=== PATIENT | male | born 1960 | race Caucasian/White ===

== ENCOUNTER 2017-03-08 14:30 | Emergency (ER) | payer BC | END 2017-03-08 14:31 | disposition left against medical advice (07) | LOC: CED 14:30 | DX: Z53.21 Procedure and treatment not carried out due to patient leaving prior to being seen by health care provider (principal) ==

== ENCOUNTER 2017-05-06 15:31 | Emergency (ER) | payer BC ==
[2017-05-06 15:57] VITALS: O2SAT 95
--- NOTE | 2017-05-06 16:30 | EDPHY ---
H & P Stated Complaint: llq abd pain with hx diverticulitis Time Seen by Provider: 05/06/17 16:29 - Personal History Current Tetanus/Diphtheria Vaccine: Yes - Medical/Surgical History Hx Asthma: No Hx Chronic Respiratory Disease: No Hx Diabetes: No Hx Cardiac Disease: Yes Hx Renal Disease: No Hx Cirrhosis: No Hx Alcoholism: No Hx HIV/AIDS: No Hx Splenectomy or Spleen Trauma: No Other PMH: diverticulitis. htn, high cholesterol, high triglycerides. thyroid ca, compartment syndrome related to running (fasciotomy to both shins). cholecystecomy, appy. mast cell activation. being worked up for poss pheo - Social History Smoking Status: Never smoked Constitutional: Initial Vital Signs Temperature (C) 36.8 C 05/06/17 15:54 Heart Rate 91 05/06/17 15:54 Respiratory Rate 18 05/06/17 15:54 Blood Pressure 145/100 H 05/06/17 15:54 O2 Sat (%) 95 05/06/17 15:54 O2 Delivery Mode Room Air Allergies/Adverse Reactions: codeine Allergy (Verified 05/06/17 15:53) GI BLEED loratadine [From Claritin] Allergy (Verified 05/06/17 15:53) PERIPHERAL NEUROPATHY moxifloxacin Allergy (Verified 05/06/17 15:53) Peripheral Neuropathy/ Tachycardia Home Medications: Medication Instructions Recorded Cetirizine [ZyrTEC 10 mg (*)] 10 mg PO DAILY PRN 11/15/13 Diltiazem Xr [Dilacor Xr] 240 mg PO DAILY 11/15/13 Lisinopril [Zestril 20 mg (*)] 20 mg PO DAILY@1700 11/15/13 Simvastatin [Zocor 20 mg] 20 mg PO DAILY@17 11/15/13 Multivitamins [Multivitamin (*)] 1 each PO DAILY 11/16/13 Levothyroxine [Synthroid 150 mcg 150 mcg PO DAILY06 11/10/14 (*)] Silodosin [RAPAFLO] 4 mg PO DAILY@17 11/10/14 Aspirin EC [Aspirin EC 81 mg (*)] 81 mg PO DAILY 12/19/15 Ketotifen Fumarate [Zaditor] 1 drop EACHEYE BID 12/19/15 Acetaminophen [Tylenol 325mg (*)] 650 mg PO QID PRN #0 tab 12/21/15 Tears/Dextran 70/Hypromellose 1 drop EACHEYE PRN PRN #0 opht.btl 12/21/15 [Natural Balance Tears (*)] Medical Decision Making - Diagnostics Imaging Results: Imaging Impressions Abdomen CT 05/06/17 17:12 Impression: 1. No acute findings in the abdomen or pelvis 2. Nonobstructing right nephrolithiasis. 3. Diverticulosis without evidence of diverticulitis. 4. Fatty infiltration of the liver. 5. Additional findings as above. Findings discussed with Dr. Salo Hess on May 06, 2017 at 1842 hours. Imaging: Discussed imaging studies w/ optometric coordinator Radiologist ED Course/Re-evaluation: CHIEF COMPLAINT: Left lower quadrant abdominal pain HISTORY OF PRESENT ILLNESS: This patient is a 56 y/o male with history of MCAS complaining of lower left quadrant abdominal pain onset this morning. Two years ago he was diagnosed with , diverticulitis and had similar symptoms at that time. He was initially treated with Augmentin which did not resolve symptoms, then with moxifloxacin, to which he had an allergic reaction. IV Invanz successfully resolved his symptoms. He also has history of epiploic appendagitis, which presented with similar symptoms as well. His current pain had no relief with ibuprofen. He has associated nausea. He thought his pain could be related to constipation, and endorses some diarrhea after taking a stool softener. He endorses chills. He denies fever, chest pain, shortness of breath, urinary complaints, or other associated symptoms. REVIEW OF SYSTEMS: A 10 point review of systems was performed and is negative with the exception of the elements mentioned in the history of present illness. PHYSICAL EXAM: HR, BP, O2 Sat, RR. Temp noted General Appearance: Alert, well hydrated, appropriate, and non-toxic appearing. Head: Atraumatic without scalp tenderness or obvious injury Eyes: Pupils equal, round, reactive to light and accommodation, EOMI, no trauma , no injection. Ears: Clear bilaterally, no perforation, normal landmarks Nose: Atraumatic, no rhinorrhea, clear. Throat: There is no erythema or exudates, no lesions, normal tonsils, mucus membranes moist. Neck: Supple, 2+ carotid upstroke, nontender, no lymphadenopathy. Respiratory: No retractions, no distress, no wheezes, and no accessory muscle use. Lungs are clear to auscultation bilaterally. Cardiovascular: Regular rate and rhythm, no murmurs, rubs, or gallops. Bilateral carotid, radial, dorsalis pedis, and posterior tibial pulses intact. Good capillary refill all extremities. Gastrointestinal: Left lower quadrant tenderness. Abdomen is soft, non- distended, no masses, no rebound, no guarding, no peritoneal signs. Musculoskeletal: Normal active ROM of all extremities, atraumatic. Neurological: Alert, appropriate, and interactive. The patient has normal DTRs and non-focal cranial nerves, motor, sensory, and cerebellar exam. Skin: No rashes, good turgor, no nodules on palpation. Past medical history: Mast cell activation syndrome (takes Dinora, Zyrtec, Benadryl). Diverticulitis. Possible reaction to IV gadolinium. Hypertension, Hyperlipidemia, High triglycerides, Thyroid cancer, Past surgical history: Cholecystectomy, Appendectomy Family history: Noncontributory Social history: Employed, does not abuse tobacco drugs or alcohol DIAGNOSTICS/PROCEDURES/CRITICAL CARE TIME: Study: CT of the abdomen and pelvis with IV contrast Indication: left lower abdominal pain Results: CT scan of the abdomen and pelvis was obtained. The results of the study are no acute findings of diverticulitis or epiploic appendagitis or anything else. The study was read by the radiologist, Dr. Corby Tavera. I viewed the images myself on the PACS system. DIFFERENTIAL DIAGNOSIS: The differential diagnosis for the patient's abdominal pain included but was not limited to appendicitis, cholecystitis, hernias, testicular torsion, gastritis, and urinary tract infection. MEDICAL DECISION MAKIN56 y/o male presents with left sided abdominal pain onset this morning. Exam reveals left lower quadrant tenderness. Plan for CT abdomen with contrast to assess for acute findings including diverticulitis or epiploic appendagitis. Plan for labs including CBC, BMP, liver, and lipase. Plan to administer 50mg IV Benadryl given the patient's history of MCAS. 17:[address] Covarrubias, infectious disease specialist regarding possible followup for IV Invanz if the patient does have diverticulitis. Laboratory studies unremarkable. No elevated white blood cell count. 18:[address] Tavera, radiologist. CT negative for acute intraabdominal processes. See detailed report above. Fortunately, this patient does not have any acute findings. We will have him follow up with his regular doctor as this certainly could be a very early sigmoid diverticulitis that is just not showing up yet. Laboratory studies are unrevealing for any specific diagnosis. This patient will return if he gets worse. He is comfortable with this plan. - Data Points Laboratory Results: Laboratory Results 05/06/17 16:45 05/06/17 16:45 05/06/17 05/06/17 16:45 16:45 WBC 4.65 10^3/uL 10^3/uL (3.80-9.50) RBC 5.27 10^6/uL 10^6/uL (4.40-6.38) Hgb 16.7 g/dL g/dL (13.7-17.5) Hct 44.9 % % (40.0-51.0) MCV 85.2 fL fL (81.5-99.8) MCH 31.7 pg pg (27.9-34.1) MCHC 37.2 g/dL H g/dL (32.4-36.7) RDW 12.8 % % (11.5-15.2) Plt Count 155 10^3/uL 10^3/uL (150-400) MPV 10.5 fL fL (8.7-11.7) Neut % (Auto) 66.7 % % (39.3-74.2) Lymph % (Auto) 19.4 % % (15.0-45.0) [place] % (Auto) 11.0 % % (4.5-13.0) Eos % (Auto) 1.7 % % (0.6-7.6) Baso % (Auto) 0.6 % % (0.3-1.7) Nucleat RBC Rel Count 0.0 % % (0.0-0.2) Absolute Neuts (auto) 3.10 10^3/uL 10^3/uL (1.70-6.50) Absolute Lymphs (auto) 0.90 10^3/uL L 10^3/uL (1.00-3.00) Absolute Monos (auto) 0.51 10^3/uL 10^3/uL (0.30-0.80) Absolute Eos (auto) 0.08 10^3/uL 10^3/uL (0.03-0.40) Absolute Basos (auto) 0.03 10^3/uL 10^3/uL (0.02-0.10) Absolute Nucleated RBC 0.00 10^3/uL 10^3/uL (0-0.01) Immature Gran % 0.6 % % (0.0-1.1) Immature Gran # 0.03 10^3/uL 10^3/uL (0.00-0.10) RBC/WBC/PLT Morphology NORMAL (NORMAL) Platelet Estimate ADEQUATE (ADEQ) Sodium 140 mEq/L mEq/L (134-144) Potassium 4.2 mEq/L mEq/L (3.5-5.2) Chloride 105 mEq/L mEq/L (97-110) Carbon Dioxide 21 mEq/l L mEq/l (22-31) Anion Gap 14 mEq/L mEq/L (8-16) BUN 14 mg/dL mg/dL (7-23) Creatinine 1.2 mg/dL mg/dL (0.7-1.3) Estimated GFR > 60 Glucose 98 mg/dL mg/dL (70-100) Calcium 10.1 mg/dL mg/dL (8.5-10.4) Total Bilirubin 1.2 mg/dL mg/dL (0.1-1.4) Conjugated Bilirubin 0.4 mg/dL mg/dL (0.0-0.5) Unconjugated Bilirubin 0.8 mg/dL mg/dL (0.0-1.1) AST 59 IU/L IU/L (17-59) ALT 110 IU/L H IU/L (21-72) Alkaline Phosphatase 95 IU/L IU/L (38-126) Total Protein 7.6 g/dL g/dL (6.3-8.2) Albumin 4.9 g/dL g/dL (3.5-5.0) Lipase 130 IU/L IU/L (23-300) Medications Given: Discontinued Medications Diphenhydramine HCl (Benadryl Injection) 50 mg IVP EDNOW ONE Stop: 05/06/17 17:15 Last Admin: 05/06/17 17:28 Dose: 50 mg Sodium Chloride (Ns) 1,000 mls @ 0 mls/hr IV EDNOW ONE; Wide Open PRN Reason: Protocol Stop: 05/06/17 17:12 Last Admin: 05/06/17 17:28 Dose: 1,000 mls Departure - Departure Disposition: Home, Routine, Self-Care Clinical Impression: Abdominal pain Qualifiers: Abdominal location: left lower quadrant Qualified Code(s): R10.32 - Left lower quadrant pain Condition: Good Instructions: Acute Abdominal Pain (ED) Additional Instructions: Follow up with your primary care physician for continued evaluation of symptoms. Take 600mg Ibuprofen every 6-8 hours as needed for pain. Return if your pain worsens or if your pain is not resolved in the next 12-18 hours, or if you develop fever, vomiting, diarrhea, or other worsening of condition. Attached is information on contacting Dr. Lois Hinkle if you are interested in following up with her regarding MCAS. Referrals: Candida Loredo MD [Primary Care Provider] - As per Instructions Lois Hinkle MD [[facility] [place]] - As per Instructions Report Scribed for: Salo Hess Report Scribed by: Vicky Diego Date of Report: 05/06/17 Time of Report: 19:02
[2017-05-06] MEDS ORDERED: NS 1,000 ML IV ONE (17:11)
[2017-05-06 17:25] LABS: ALANINE AMINOTRANSFERASE 110 IU/L (21-72); ALBUMIN 4.9 g/dL (3.5-5.0); ALKALINE PHOSPHATASE 95 IU/L (38-126); ANION GAP 14 mEq/L (8-16); ASPARTATE AMINOTRANSFERASE 59 IU/L (17-59); BILIRUBIN,TOTAL 1.2 mg/dL (0.1-1.4); BILIRUBIN-CONJUGATED 0.4 mg/dL (0.0-0.5); BILIRUBIN-UNCONJUGATED 0.8 mg/dL (0.0-1.1); CALCIUM 10.1 mg/dL (8.5-10.4); CARBON DIOXIDE 21 mEq/l (22-31); CHLORIDE 105 mEq/L (97-110); CREATININE 1.2 mg/dL (0.7-1.3); GLOMERULAR FILTRATION RATE > 60; GLUCOSE 98 mg/dL (70-100); POTASSIUM 4.2 mEq/L (3.5-5.2); SODIUM 140 mEq/L (134-144); TOTAL PROTEIN 7.6 g/dL (6.3-8.2)
[2017-05-06 17:39] LABS: % IMMATURE GRANULYOCYTES 0.6 % (0.0-1.1); ABSOLUTE IMMATURE GRANULOCYTES 0.03 10^3/uL (0.00-0.10); ADD DIFF? NO; HEMATOCRIT 44.9 % (40.0-51.0); HEMOGLOBIN 16.7 g/dL (13.7-17.5); MEAN CELL HEMOGLOBIN 31.7 pg (27.9-34.1); MEAN CELL HEMOGLOBIN CONCENTR. 37.2 g/dL (32.4-36.7); MEAN CELL VOLUME 85.2 fL (81.5-99.8); MEAN PLATELET VOLUME 10.5 fL (8.7-11.7); PLATELET COUNT 155 10^3/uL (150-400); RED BLOOD CELL COUNT 5.27 10^6/uL (4.40-6.38); RED CELL DISTRIBUTION WIDTH 12.8 % (11.5-15.2)
[2017-05-06] MEDS ORDERED: IOPAMIDOL (ISOVUE-300) 100 ML BTL ONE (17:40)
[2017-05-06 17:43] LABS: ADD SCAN? NO
[2017-05-06 17:45] LABS: ADD MORPH? YES
[2017-05-06 18:13] LABS: PLATELET ESTIMATE ADEQUATE (ADEQ)
[2017-05-06 19:46] VITALS: BP 136/86; PULSE 74; RESP 16; TEMP 97.5
== END 2017-05-06 19:46 | disposition home or self-care (01) ==
DX: R10.32 Left lower quadrant pain (principal); I10 Essential (primary) hypertension; E86.9 Volume depletion, unspecified; Z79.82 Long term (current) use of aspirin; Z85.850 Personal history of malignant neoplasm of thyroid; Z90.49 Acquired absence of other specified parts of digestive tract
CPT/HCPCS: 96374; J1200; Q9967

== ENCOUNTER → 2017-11-19 | Outpatient (CLI) | payer BC | LOC: FIMAGING 15:52 | PROVIDERS: ATTEND Physical Medicine & Rehabilitation | DX: M54.2 Cervicalgia (principal); M50.30 Other cervical disc degeneration, unspecified cervical region; M50.21 Other cervical disc displacement, high cervical region ==

== ENCOUNTER 2018-01-04 10:04 | Emergency (ER) | payer BC ==
--- NOTE | 2018-01-04 10:32 | EDPHY ---
H & P Stated Complaint: R flank pain x 1 day, R testicle pain continues saw uro epidm Time Seen by Provider: 01/04/18 10:15 HPI/ROS: CHIEF COMPLAINT: Right flank pain, right testicle pain HISTORY OF PRESENT ILLNESS: 57-year-old male via private vehicle complaining of right testicle pain which has been occurring for few days. He saw urology 4 days ago DAMARI Holly, diagnosed epididymitis given injection of cephalosporin, prescription for Cipro. He notes that the right testicle pain continues, described as an the posterior aspect of the right testicle. However he comes to the ER primarily because of new onset right flank pain. Does note history of nephrolithiasis in the past. Urinary habits have been normal. No dysuria no hematuria increased frequency. No trauma. No fever or chills. No vomiting. REVIEW OF SYSTEMS: A ten point review of systems was performed and is negative with the exception of the items mentioned in the HPI PAST MEDICAL & SURGICAL HISTORY: prior history of nephrolithiasis SOCIAL HISTORY: Nonsmoker PHYSICAL EXAM (Prior to examination, patient consented to physical exam, hands were washed and my usual and customary physical exam procedures followed) 1) GENERAL: Well-developed, well-nourished, alert and oriented. Appears to be in no acute distress. 2) HEAD: Normocephalic, atraumatic 3) HEENT: Pupils equal, round, reactive to light bilaterally. Sclera anicteric. 4) NECK: Full range of motion, no meningeal signs. 5) LUNGS: Clear auscultation bilaterally, no wheezes, no rhonchi, no retractions. 6) HEART: Regular rate and rhythm, no murmur, no heave, no gallop. 7) ABDOMEN: No guarding, no rebound, no focal tenderness, negative McBurney's, negative Monte's, negative Rovsing's, negative peritoneal sign, 8) MUSCULOSKELETAL: Moving all extremities, no focal areas of tenderness, no obvious trauma. No peripheral edema or discoloration. 9) BACK: No CVA tenderness, no midline vertebral tenderness, no fluctuance, no step-off, no obvious trauma, no visual or palpable abnormality. 10) SKIN: No rash, no petechiae. 11) : Bilateral testicles are descended, right posterior testicle is tender to palpation. No signs of Lynne's gangrene or cellulitis. No urethral discharge. Bilateral cremasteric reflex present and brisk. No high-riding testicle. DIFFERENTIAL DIAGNOSIS: In no particular order including but not limited to testicular torsion, epididymitis, nephrolithiasis, ureterolithiasis, cystitis - Medical/Surgical History Hx Asthma: No Hx Chronic Respiratory Disease: No Hx Diabetes: No Hx Cardiac Disease: Yes Hx Renal Disease: No Hx Cirrhosis: No Hx Alcoholism: No Hx HIV/AIDS: No Hx Splenectomy or Spleen Trauma: No Other PMH: diverticulitis, kid stones. htn, high cholesterol, high triglycerides. thyroid ca, compartment syndrome related to running (fasciotomy to both shins). cholecystecomy, appy. mast cell disease - Social History Smoking Status: Never smoked Constitutional: Initial Vital Signs Temperature (C) 37.0 C 01/04/18 10:08 Heart Rate 91 01/04/18 10:08 Respiratory Rate 18 01/04/18 10:08 Blood Pressure 165/106 H 01/04/18 10:08 O2 Sat (%) 95 01/04/18 10:08 O2 Delivery Mode Room Air Allergies/Adverse Reactions: codeine Allergy (Verified 05/06/17 15:53) GI BLEED loratadine [From Claritin] Allergy (Verified 05/06/17 15:53) PERIPHERAL NEUROPATHY moxifloxacin Allergy (Verified 05/06/17 15:53) Peripheral Neuropathy/ Tachycardia Rqmlnat-Pxv-Jle Reductase Inhibitor Allergy (Verified 01/04/18 10:06) Home Medications: Medication Instructions Recorded Cetirizine [ZyrTEC 10 mg (*)] 10 mg PO DAILY PRN 11/15/13 Diltiazem Xr [Dilacor Xr] 240 mg PO DAILY 11/15/13 Lisinopril [Zestril 20 mg (*)] 20 mg PO DAILY@1700 11/15/13 Simvastatin [Zocor 20 mg] 20 mg PO DAILY@17 11/15/13 Multivitamins [Multivitamin (*)] 1 each PO DAILY 11/16/13 Levothyroxine [Synthroid 150 mcg 150 mcg PO DAILY06 11/10/14 (*)] Silodosin [RAPAFLO] 4 mg PO DAILY@17 11/10/14 Aspirin EC [Aspirin EC 81 mg (*)] 81 mg PO DAILY 12/19/15 Ketotifen Fumarate [Zaditor] 1 drop EACHEYE BID 12/19/15 Acetaminophen [Tylenol 325mg (*)] 650 mg PO QID PRN #0 tab 12/21/15 Tears/Dextran 70/Hypromellose 1 drop EACHEYE PRN PRN #0 opht.btl 12/21/15 [Natural Balance Tears (*)] Medical Decision Making - Diagnostics Imaging Results: Imaging Impressions Abdomen/Pelvis CT 01/04/18 10:33 Impression: 1. Nonobstructive right nephrolithiasis with a calyceal 10 x 6 x 8 mm calculus. No ureterolithiasis or hydronephrosis. 2. No left nephrolithiasis or hydronephrosis. 3. Prior cholecystectomy and appendectomy. 4. Sigmoid diverticulosis without diverticulitis or bowel obstruction. 5. Hepatic steatosis. Attention: This CT examination is specifically designed to evaluate patients who are clinically suspected of having acute obstructive uropathy. This examination does not use radiographic contrast, and as such, provides only a limited evaluation of the abdomen, pelvis, and retroperitoneum. If there is further clinical suspicion for pathological conditions other than obstructive uropathy, a complete CT evaluation of the abdomen and pelvis utilizing intravenous, oral, and rectal contrast should be considered. Findings and recommendations discussed with emergency department physician assistant manager airside operations, Phil Carias PA-C at 1128 hours on January 04, 2018. Final report concurs with initial preliminary interpretation. Testicular Ultrasound 01/04/18 10:33 Impression: 1. Small right hydrocele. 2. No intratesticular masses. 3. No evidence of testicular torsion or definite epididymitis. Findings and recommendations discussed with emergency department physician assistant manager airside operations, Phil Carias PA-C at 1119 hours on January 04, 2018. Final report concurs with initial preliminary interpretation. Images reviewed myself ED Course/Re-evaluation: 10:30 a.m.: Plan will be diagnostic studies including repeat testicular ultrasound as we discussed the possibility of intermittent testicular torsion. Will also obtain CT renal study given is complaints of right flank pain. I saw this patient independently based on established practice protocols. Care of patient under supervision of secondary supervising physician Dr Garrett . 12:27 p.m.: Re-evaluation, the appears well. Discussed his imaging results showing normal testicular flow, 10 mm renal stone with no evidence of obstruction. His urine shows no pyuria or bacteriuria. I think the patient can be discharged. Tomorrow is Friday and he is already planning on calling DAMARI Holly with Urology. Plan will be discharged with analgesia. Offered analgesia and he declines. States his pain is controlled with ibuprofen. Usual and customary discharge precautions instructions provided. - Data Points Laboratory Results: Laboratory Results 01/04/18 10:30 01/04/18 10:30 01/04/18 01/04/18 01/04/18 10:50 10:30 10:30 WBC 4.20 10^3/uL 10^3/uL (3.80-9.50) RBC 5.30 10^6/uL 10^6/uL (4.40-6.38) Hgb 16.6 g/dL g/dL (13.7-17.5) Hct 45.9 % % (40.0-51.0) MCV 86.6 fL fL (81.5-99.8) MCH 31.3 pg pg (27.9-34.1) MCHC 36.2 g/dL g/dL (32.4-36.7) RDW 11.8 % % (11.5-15.2) Plt Count 181 10^3/uL 10^3/uL (150-400) MPV 11.1 fL fL (8.7-11.7) Neut % (Auto) 59.1 % % (39.3-74.2) Lymph % (Auto) 25.7 % % (15.0-45.0) [place] % (Auto) 10.0 % % (4.5-13.0) Eos % (Auto) 4.0 % % (0.6-7.6) Baso % (Auto) 1.0 % % (0.3-1.7) Nucleat RBC Rel Count 0.0 % % (0.0-0.2) Absolute Neuts (auto) 2.48 10^3/uL 10^3/uL (1.70-6.50) Absolute Lymphs (auto) 1.08 10^3/uL 10^3/uL (1.00-3.00) Absolute Monos (auto) 0.42 10^3/uL 10^3/uL (0.30-0.80) Absolute Eos (auto) 0.17 10^3/uL 10^3/uL (0.03-0.40) Absolute Basos (auto) 0.04 10^3/uL 10^3/uL (0.02-0.10) Absolute Nucleated RBC 0.00 10^3/uL 10^3/uL (0-0.01) Immature Gran % 0.2 % % (0.0-1.1) Immature Gran # 0.01 10^3/uL 10^3/uL (0.00-0.10) Sodium 144 mEq/L mEq/L (135-145) Potassium 4.2 mEq/L mEq/L (3.3-5.0) Chloride 107 mEq/L mEq/L (97-110) Carbon Dioxide 23 mEq/l mEq/l (22-31) Anion Gap 14 mEq/L mEq/L (8-16) BUN 11 mg/dL mg/dL (7-23) Creatinine 1.2 mg/dL mg/dL (0.7-1.3) Estimated GFR > 60 Glucose 117 mg/dL H mg/dL (70-100) Calcium 9.8 mg/dL mg/dL (8.5-10.4) Urine Color YELLOW Urine Appearance CLEAR Urine pH 6.0 (5.0-7.5) Ur Specific [place] 1.004 (1.002-1.030) Urine Protein NEGATIVE (NEGATIVE) Urine Ketones NEGATIVE (NEGATIVE) Urine Blood NEGATIVE (NEGATIVE) Urine Nitrate NEGATIVE (NEGATIVE) Urine Bilirubin NEGATIVE (NEGATIVE) Urine Urobilinogen NEGATIVE EU EU (0.2-1.0) Ur Leukocyte Esterase NEGATIVE (NEGATIVE) Urine RBC 1-3 /hpf /hpf (0-3) Urine WBC 1-3 /hpf /hpf (0-3) Ur Epithelial Cells NONE SEEN /lpf /lpf (NONE-1+) Urine Mucus TRACE /lpf /lpf (NONE-1+) Urine Sperm PRESENT /hpf /hpf (NONE SEEN) Urine Glucose NEGATIVE (NEGATIVE) Departure - Departure Disposition: Home, Routine, Self-Care Clinical Impression: Nephrolithiasis Condition: Good Instructions: Kidney Stones (ED) Additional Instructions: Return to the ER if you develop new or worsening pain, if you develop vomiting or any other symptoms that concern you Referrals: Liberty Holly, PAC [Physician Delivery Driver] - As per Instructions
[2018-01-04 11:05] LABS: PLATELET COUNT 181 10^3/uL (150-400)
[2018-01-04 13:08] VITALS: BP 143/101
== END 2018-01-04 13:15 | disposition home or self-care (01) ==
DX: N20.0 Calculus of kidney (principal); I10 Essential (primary) hypertension; Z79.82 Long term (current) use of aspirin; Z85.850 Personal history of malignant neoplasm of thyroid; Z90.49 Acquired absence of other specified parts of digestive tract

== ENCOUNTER 2018-01-20 08:12 | Inpatient (IN) | payer BC ==
[~2018-01-20 08:12] MED LIST: BUPIVACAINE 0.25% 30 ML SDV ONE; HEPARIN 1000 UNIT/1 ML MDV ONE; ceFAZolin 1 GM/5 ML SYR ONE; cefOXitin SODIUM 2 GM in NS 100 ML IV ONE
--- NOTE | 2018-01-20 08:23 | PDHPUP ---
History & Physical Update H&P update statement: This history and physical update is based on an assessment of the patient which was completed after admission or registration (within 24 hours), but prior to the surgery/procedure. H&P update: H&P reviewed & patient examined, no change in patient's condition since H&P completed
[2018-01-20] MEDS ORDERED: LR 1,000 ML IV ONE (08:24)
[2018-01-20] MEDS ORDERED: fentaNYL 250 MCG/5 ML INJ ONE (08:44)
[2018-01-20] MEDS ORDERED: KETOROLAC 30 MG/1 ML SDV ONE (08:44)
[2018-01-20] MEDS ORDERED: ROCURONIUM 100 MG/10 ML VIAL ONE (08:44)
[2018-01-20] MEDS ORDERED: PROPOFOL 200 MG/20 ML VIAL ONE ×2 (08:44)
[2018-01-20] MEDS ORDERED: ONDANSETRON 4 MG/2 ML VIAL ONE (08:45)
[2018-01-20] MEDS ORDERED: DEXAMETHASONE 4 MG/ML VIAL ONE (08:45)
[2018-01-20] MEDS ORDERED: MIDAZOLAM 2 MG/2 ML VIAL IVP ONE (08:49)
[2018-01-20] MEDS ORDERED: LIDOCAINE 2% 5 ML SDV ONE (08:49)
--- NOTE | 2018-01-20 08:56 | PDANEPAE ---
ANE History of Present Illness diverticulitis ANE Past Medical History - Cardiovascular History Hx Hypertension: Yes Hx Arrhythmias: Yes Hx Chest Pain: No Hx Coronary Artery / Peripheral Vascular Disease: No Hx CHF / Valvular Disease: No Hx Palpitations: No Cardiovascular History Comment: SVT 2002, 2004. No further issues since - Pulmonary History Hx COPD: No Hx Asthma/Reactive Airway Disease: Yes Hx Recent Upper Respiratory Infection: No Hx Oxygen in Use at Home: No Hx Sleep Apnea: No Sleep Apnea Screening Result - Last Documented: Positive Pulmonary History Comment: HX 10 yrs ago. SEASONAL HAY FEVER - Neurologic History Hx Cerebrovascular Accident: No Hx Seizures: No Hx Dementia: No Neurologic History Comment: concussion 2008. SYNCOPE SXS OF MAST CELL ACTIVATION DISORDER - Endocrine History Hx Diabetes: No Endocrine History Comment: Courtney/thyroid 2010. thyroidectomy - Renal History Hx Renal Disorders: Yes Renal History Comment: benign BPH-med. chronic prostatitis since 2005. creatinine at good levels -1.2 - Liver History Hx Hepatic Disorders: Yes Hepatic History Comment: HX fatty liver - Neurological & Psychiatric Hx Hx Neurological and Psychiatric Disorders: No - Cancer History Hx Cancer: Yes Cancer History Comment: thyroid CA - Congenital Disorder History Hx Congenital Disorders: No - GI History Hx Gastrointestinal Disorders: Yes Gastrointestinal History Comment: GI bleed from codeine 1987. HX diverticulitis per colonoscopy - Other Health History Other Health History: mild arthritis L spine. 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 thyroidectomy. 06/06 GB cholecystectomy. bilateral fasciotomys [id number]. Appy 1991 ANE Review of Systems Review of Systems: - Exercise capacity METS (RN): 5 METS ANE Patient History - Allergies Allergies/Adverse Reactions: codeine Allergy (Verified 05/06/17 15:53) GI BLEED loratadine [From Claritin] Allergy (Verified 05/06/17 15:53) PERIPHERAL NEUROPATHY moxifloxacin Allergy (Verified 05/06/17 15:53) Peripheral Neuropathy/ Tachycardia Txidxyc-Fgh-Etr Reductase Inhibitor Allergy (Verified 01/04/18 10:06) - Home Medications Home medications: home medication list seen and reviewed Home Medications: Cetirizine [ZyrTEC 10 mg (*)] 10 - 40 mg PO DAILY PRN 11/15/13 [Last Taken 2 Days Ago ~01/18/18] Diltiazem Xr [Dilacor Xr] 240 mg PO DAILY 11/15/13 [Last Taken 1 Day Ago ~] Lisinopril [Zestril 20 mg (*)] 20 mg PO DAILY@1700 11/15/13 [Last Taken 1 Day Ago ~01/19/18] Multivitamins [Multivitamin (*)] 1 each PO DAILY 11/16/13 [Last Taken 2 Days Ago ~01/18/18] Silodosin [RAPAFLO] 8 mg PO DAILY 11/10/14 [Last Taken 1 Day Ago ~01/19/18] Ketotifen Fumarate [Zaditor] 1 drop EACHEYE BID 12/19/15 [Last Taken 1 Day Ago ~ 01/19/18] Acetaminophen [Tylenol 325mg (*)] 325 mg PO Q6 PRN 01/16/18 [Last Taken 2 Weeks Ago ~01/06/18] Ergocalciferol [Vitamin D2 (*)] 50,000 unit PO Q5D 01/16/18 [Last Taken 2 Days Ago ~01/18/18] Famotidine [Pepcid AC] 10 mg PO QID PRN 01/16/18 [Last Taken 1 Day Ago ~01/19/18 ] Fexofenadine/Pseudoephedrine [Dinora-D 12 Hour Tablet] 1 each PO DAILY [Last Taken 2 Days Ago ~01/18/18] Fluticasone Nasal [Flonase Nasal [place] (RX)] 1 sprays NASAL DAILY 01/16/18 [ Last Taken 1 Day Ago ~01/19/18] Ibuprofen [Motrin (*)] 200 - 600 mg PO DAILY PRN 01/16/18 [Last Taken 1 Week Ago ~01/13/18] Levothyroxine [Synthroid 125 mcg (*)] 125 mcg PO DAILY06 01/16/18 [Last Taken 1 Day Ago ~01/19/18] Linaclotide [Linzess] 145 mcg PO DAILY 01/16/18 [Last Taken 2 Days Ago ~01/18/18 ] - NPO status NPO Since - Liquids (Date): 01/20/18 NPO Since - Liquids (Time): 00:00 NPO Since - Solids (Date): 01/19/18 NPO Since - Solids (Time): 09:30 - Anes Hx Anes Hx: no prior problems - Smoking Hx Smoking Status: Never smoked - Family Anes Hx Family Hx Anesthesia Complications: neg ANE Labs/Vital Signs - Vital Signs Blood Pressure: 148/108 Heart Rate: 95 Respiratory Rate: 18 O2 Sat (%): 96 Height: 182.88 cm Weight: 106.594 kg ANE Physical Exam - Airway Neck exam: FROM Mallampati Score: Class 1 Mouth exam: normal dental/mouth exam - Pulmonary Pulmonary: no respiratory distress - Cardiovascular Cardiovascular: regular rate and rhythym - ASA Status ASA Status: III ANE Anesthesia Plan Anesthesia Plan: general endotracheal anesthesia
--- NOTE | 2018-01-20 09:39 | POSTANESTH ---
Post Anesthetic Evaluation Cardiovascular Status: Normal, Stable Respiratory Status: Normal, Stable Level of Consciousness/Mental Status: Can Participate in Eval, Mildly Sleepy, Arousable Pain Control: Adequate, Prn Tx Ordered Nausea/Vomiting Control: Adequate, Prn Tx Ordered Complications Possibly Related to Anesthesia: None Noted
[2018-01-20] MEDS ORDERED: fentaNYL 100 MCG/2 ML INJ ONE (10:14)
[2018-01-20] MEDS ORDERED: HYDROmorphONE/DILAUDID 2 MG/ML INJ ONE (10:28)
[2018-01-20] MEDS ORDERED: ROCURONIUM 50 MG/5 ML VIAL ONE (10:44)
[2018-01-20] MEDS ORDERED: HYDROmorphONE/DILAUDID 1 MG/ML INJ IVP PRN ×2 (10:56→19:33)
[2018-01-20] MEDS ORDERED: LR 500 ML IV PRN (10:56)
[2018-01-20] MEDS ORDERED: NALOXONE HCL 0.4 MG/ML INJ IVP PRN (10:56)
[2018-01-20] MEDS ORDERED: oxyCODONE IR 5 MG TAB PO PRN (10:56)
[2018-01-20] MEDS ORDERED: fentaNYL 100 MCG/2 ML INJ IVP PRN (10:56)
[2018-01-20] MEDS ORDERED: ACETAMINOPHEN 500 MG TAB PO PRN (10:56)
[2018-01-20] MEDS ORDERED: ALBUTEROL 3 ML DEYVIAL IH PRN (10:56)
[2018-01-20] MEDS ORDERED: PROMETHAZINE HCL 25 MG/ML INJ IVP PRN (10:56)
[2018-01-20] MEDS ORDERED: HYDROCODONE/APAP 5/325 TAB PO PRN (10:56)
[2018-01-20] MEDS ORDERED: ONDANSETRON 4 MG/2 ML VIAL IVP PRN ×2 (10:56→11:29)
--- NOTE | 2018-01-20 11:33 | POSTOPPROG ---
Post Op Note Date of Operation: 01/20/18 Surgeon: Kanu Amaya Summer Law Clerk: Jackie Knapp Anesthesiologist: Fernando Forde Anesthesia: GET(General Endotracheal) Pre-op Diagnosis: recurrent diverticulitis Post-op Diagnosis: same Procedure: lap assisted sigmoid colectomy c splenic flexure mobilization Findings: focal area of adhesions and diverticuli Inf/Abcess present in the surg proc area at time of surgery?: No EBL: Minimal Complications: none Specimen(s): sigmoid colon to pathology
--- NOTE | 2018-01-20 11:51 | PDMN ---
Medical Necessity Medical necessity: Bowel Surgery: Colectomy, Partial, with or without Ostomy, by Laparoscopy, 4 days, m'care in only. [id number] [place] sigmoid colectomy w/splenic flexure mobilization
[2018-01-20] MEDS: D5W 1/2 NS 1,000 ML IV SCH (12:36)
[2018-01-20] MEDS: OXYCODONE/APAP 5/325 TAB PO PRN ×2 (16:37→23:39)
--- NOTE | 2018-01-20 16:45 | SOAPPROG ---
AYALA Progress Note Assessment/Plan: Assessment/Plan: 57 Y M s/p lap assisted sigmoid colectomy for recurrent diverticulitis. POD#0. Post op check. Seen and examined by Dr. Amaya. Marcus Knapp acting as scribe: alert, pain controlled. wounds intact. AFVSS. Continue routine post op care. Morales out tomorrow am and will start clears in am. 01/20/18 16:44 Objective: Vital Signs Temp Pulse Resp BP Pulse Ox 37.1 C 99 16 135/95 H 98 01/20/18 12:25 01/20/18 15:25 01/20/18 15:25 01/20/18 15:25 01/20/18 15:25 01/19/18 01/20/18 01/21/18 05:59 05:59 05:59 Intake Total 2000 Output Total 250 Balance 1750 ICD10 Worksheet Patient Problems: Problems Problem Status Onset Chest pain Acute Thyroid nodule Acute
--- NOTE | 2018-01-20 18:02 | GOP ---
[f rep st] OPERATIVE REPORT DATE OF OPERATION: SURGEON: Kanu Amaya MD BETTING CLERKS: Jackie Knapp PA-C ANESTHESIOLOGIST: Dr. Forde. PREOPERATIVE DIAGNOSIS: Recurrent diverticulitis. POSTOPERATIVE DIAGNOSIS: Recurrent diverticulitis. PROCEDURE PERFORMED: Low anterior colon resection with splenic flexure mobilization. FINDINGS: Patient was found to have diffuse diverticula in the sigmoid colon, but at least 1 area of significant inflammatory change. ESTIMATED BLOOD LOSS: Less than 25 cc. There were no complications. He was taken to the recovery room in good condition. DESCRIPTION OF PROCEDURE: The patient was taken to the operating room where he received satisfactory general endotracheal anesthesia by Dr. Forde. He was placed in the supine position in low [facility] [place] ps, prepped and draped in the usual sterile fashion. A periumbilical incision was made. A Veress ne edle was inserted. Pneumoperitoneum was established. A trocar was introduced, laparoscope introduce d. Good visualization was obtained. Three other trocars placed in the lower abdomen under direct vi desmond. The small bowel was reduced away. The sigmoid colon was elevated up. It was thickened in are as and adherent to the left lateral pelvic wall and the anterior pelvic wall. Adhesions were taken d own with the Harmonic Scalpel and some areas of inflammatory appearance were taken down with the Harm onic Scalpel. The colon was mobilized up. The ureter was identified and spared from injury. The sp lenic flexure of the colon was then mobilized with the Harmonic Scalpel all the way around to the lef t transverse colon. The mesentery was divided with the Harmonic Scalpel and then the rectosigmoid ju nction was divided with Endo DAREN stapler. A short suprapubic incision was made and carried down thro ugh the subcutaneous tissue. Fascia was divided transversely and the muscles were then split in the midline and retracted laterally. A wound protector was placed. The colon was brought out through th is point proximal to all the diverticula was selected for division and the mesenteric division was co mpleted with the Harmonic Scalpel and using a pursestring suture the proximal colon was divided. The specimen was removed and sent to Pathology. A 29 EEA was selected and placed in the proximal ileum and secured with a pursestring suture. It was then dropped back into the abdomen and the wound was t emporarily closed. Pneumoperitoneum was re-established. The EEA was brought up through the rectum a nd the post was brought out adjacent to the suture line and the 2 portions were reconnected laparosco pically and then the EEA was closed and then fired and removed. Two good anastomotic rings were pres ent. The suture line was tested under water with air insufflation in the rectum and there was no air leak. The wound was irrigated. Trocars removed under direct vision. Trocar sites were closed with 0 Vicryl for the fascia, 4-0 Monocryl subcuticular stitch for the skin, and all layers infiltrated w ith 0.5% Marcaine. The suprapubic incision was closed with 0 Vicryl for the peritoneum and musculatu re and a running #1 PDS for the fascia. Subcu was closed with 3-0 Vicryl and the skin with a 4-0 Mon ocryl subcuticular stitch. All layers infiltrated with 0.5% Marcaine. He tolerated the procedure we ll. /[id number]/MODL
[2018-01-20] MEDS: DOCUSATE SODIUM 100 MG CAP PO SCH (21:05)
[2018-01-20] MEDS ORDERED: TEARS/DEXTRAN 70/HYPROMELLOSE 15 ML OPHT.BTL EACHEYE PRN (21:33)
[2018-01-20] MEDS ORDERED: CETIRIZINE 10 MG TAB PO PRN (21:33)
[2018-01-21] MEDS: D5W 1/2 NS 1,000 ML IV SCH (04:49)
[2018-01-21] MEDS ORDERED: LEVOTHYROXINE 125 MCG TAB PO SCH (06:00)
[2018-01-21] MEDS: OXYCODONE/APAP 5/325 TAB PO PRN ×3 (07:33→19:24)
--- NOTE | 2018-01-21 08:50 | SOAPPROG ---
SOAP Progress Note Assessment/Plan: Assessment: 57 Y M s/p lap assisted sigmoid colectomy for recurrent diverticulitis. POD#1 S: Tolerating clears. Pain is well controlled. Reports history of BPH. Denies passing gas or BM yet. O: Alert Afebrile No increased WOB Abdomen: soft, but distended, dressings are cdi, +BS : Wagoner in place with yellow urine. Plan: D/c wagoner today and restart home meds for BPH. Ambulate throughout the day. Likely advance diet tomorrow. 01/21/18 08:47 Objective: Vital Signs Temp Pulse Resp BP Pulse Ox 36.8 C 81 14 142/86 H 97 01/21/18 07:25 01/21/18 07:25 01/21/18 07:25 01/21/18 07:25 01/21/18 07:25 Laboratory Results 01/21/18 04:30 01/21/18 04:30 01/20/18 01/21/18 01/22/18 05:59 05:59 05:59 Intake Total 2700 Output Total 950 Balance 1750 ICD10 Worksheet Patient Problems: Problems Problem Status Onset Chest pain Acute Thyroid nodule Acute
[2018-01-21] MEDS ORDERED: DILTIAZEM XR 240 MG CAP PO SCH (09:00)
[2018-01-21] MEDS ORDERED: FAMOTIDINE 20 MG TAB PO PRN (09:00)
[2018-01-21] MEDS: FEXOFENADINE PO SCH (09:22)
[2018-01-21] MEDS: PSEUDOEPHEDRINE PO SCH (09:22)
[2018-01-21] MEDS: KETOTIFEN FUMARATE 0.035% EACHEYE SCH ×2 (09:22→22:03)
[2018-01-21] MEDS: FLUTICASONE NASAL 120 SPRAYS/16 GM MDI EACHNARE SCH (09:23)
[2018-01-21] MEDS: DOCUSATE SODIUM 100 MG CAP PO SCH ×2 (09:56→22:03)
[2018-01-21] MEDS ORDERED: LISINOPRIL 20 MG TAB PO SCH (17:00)
[2018-01-21] MEDS ORDERED: FAMOTIDINE 10 MG PO PRN (19:48)
[2018-01-22] MEDS: LEVOTHYROXINE 125 MCG TAB PO SCH (05:24)
[2018-01-22] MEDS: OXYCODONE/APAP 5/325 TAB PO PRN ×5 (05:24→22:29)
[2018-01-22] MEDS: DILTIAZEM XR 240 MG CAP PO SCH (09:00)
[2018-01-22] MEDS: CETIRIZINE 10 MG TAB PO PRN (09:01)
[2018-01-22] MEDS: KETOTIFEN FUMARATE 0.035% EACHEYE SCH ×2 (09:02→20:28)
[2018-01-22] MEDS: DOCUSATE SODIUM 100 MG CAP PO SCH ×2 (09:02→20:29)
[2018-01-22] MEDS: PSEUDOEPHEDRINE PO SCH (09:03)
[2018-01-22] MEDS: FEXOFENADINE PO SCH (09:03)
[2018-01-22] MEDS: ENOXAPARIN 40 MG/0.4 ML SYR SC SCH (09:05)
[2018-01-22] MEDS: FLUTICASONE NASAL 120 SPRAYS/16 GM MDI EACHNARE SCH (09:05)
--- NOTE | 2018-01-22 14:29 | ASMTCMCOM ---
CM Note CM Note Notes: Chart reviewed for discharge planning purposes. 57 year male underwent colectomy for diverticulum and associated symptoms. History significant for thyroid cancer, Otherwise he has had fairly good health, per PT he is able to go home independently. CM available should needs change. Plan: Likely home with family support when medically cleared for discharge. Date Signed: 01/22/2018 02:29 PM Electronically Signed By:Sasha Fu RN
--- NOTE | 2018-01-22 15:04 | ASMTLACE ---
LACE Acuity / Level of Answers: Yes Care: Did the patient have an inpatient admission? Comorbidities - select Answers: Any tumor (including all that apply lymphoma or leukemia) Mild liver or renal disease Opioid dependence / Chronic pain Other Notes: HTN; SVT # of Emergency department Answers: 1-2 visits in the last 6 months Score: 13 Date Signed: 01/22/2018 03:03 PM Electronically Signed By:Brenda Lindo
--- NOTE | 2018-01-22 16:42 | SOAPPROG ---
SOAP Progress Note Assessment/Plan: Assessment: 57 Y M s/p lap assisted sigmoid colectomy for recurrent diverticulitis. POD#1 S: Tolerating clears. Pain is well controlled. Reports history of BPH. Denies passing gas or BM yet. O: Alert Afebrile No increased WOB Abdomen: soft, but distended, dressings are cdi, +BS : Wagoner in place with yellow urine. Plan: D/c wagoner today and restart home meds for BPH. Ambulate throughout the day. Likely advance diet tomorrow. 01/21/18 08:47 Subjective: Passing gas and loose stools. Still c/o nausea. Will continue clears for now. Possibly advance diet in am. Objective: Vital Signs Temp Pulse Resp BP Pulse Ox 37.4 C 75 16 123/85 H 94 01/22/18 12:00 01/22/18 12:00 01/22/18 12:00 01/22/18 12:00 01/22/18 12:00 Laboratory Results 01/21/18 04:30 01/21/18 04:30 01/21/18 01/22/18 01/23/18 05:59 05:59 05:59 Intake Total 2700 3272 Output Total 950 1100 Balance 1750 2172 ICD10 Worksheet Patient Problems: Problems Problem Status Onset Chest pain Acute Thyroid nodule Acute
[2018-01-22] MEDS: LISINOPRIL 20 MG TAB PO SCH (17:00)
[2018-01-23] MEDS: OXYCODONE/APAP 5/325 TAB PO PRN ×6 (02:55→22:15)
[2018-01-23] MEDS: LEVOTHYROXINE 125 MCG TAB PO SCH (06:15)
[2018-01-23] MEDS: DOCUSATE SODIUM 100 MG CAP PO SCH ×2 (09:09→20:00)
[2018-01-23] MEDS: FEXOFENADINE PO SCH (09:14)
[2018-01-23] MEDS: PSEUDOEPHEDRINE PO SCH (09:14)
[2018-01-23] MEDS: DILTIAZEM XR 240 MG CAP PO SCH (09:16)
[2018-01-23] MEDS: ENOXAPARIN 40 MG/0.4 ML SYR SC SCH (09:16)
[2018-01-23] MEDS: KETOTIFEN FUMARATE 0.035% EACHEYE SCH ×2 (09:17→20:21)
[2018-01-23] MEDS: FLUTICASONE NASAL 120 SPRAYS/16 GM MDI EACHNARE SCH (10:17)
--- NOTE | 2018-01-23 13:55 | SOAPPROG ---
SOAP Progress Note Assessment/Plan: Assessment: 57 Y M s/p lap assisted sigmoid colectomy for recurrent diverticulitis. POD#1 S: Tolerating clears. Pain is well controlled. Reports history of BPH. Denies passing gas or BM yet. O: Alert Afebrile No increased WOB Abdomen: soft, but distended, dressings are cdi, +BS : Wagoner in place with yellow urine. Plan: D/c wagoner today and restart home meds for BPH. Ambulate throughout the day. Likely advance diet tomorrow. 01/21/18 08:47 01/23/18 13:52 Continues to improve. Tolerating a regular diet, although does endorse 4/10 "cramping" after eating. Denies nausea/vomiting. Passing gas and loose BMs. Abdomen is soft and nondistended, normoactive BS, incisions cdi. Dispo home in the next day or two. Objective: Vital Signs Temp Pulse Resp BP Pulse Ox 36.9 C 74 18 130/89 H 96 01/23/18 08:00 01/23/18 08:00 01/23/18 08:00 01/23/18 08:00 01/23/18 08:00 Laboratory Results 01/21/18 04:30 01/21/18 04:30 01/22/18 01/23/18 01/24/18 05:59 05:59 05:59 Intake Total 3272 1300 Output Total 1100 Balance 2172 1300 ICD10 Worksheet Patient Problems: Problems Problem Status Onset Chest pain Acute Thyroid nodule Acute
[2018-01-23] MEDS: LISINOPRIL 20 MG TAB PO SCH (17:34)
[2018-01-23] MEDS: CETIRIZINE 10 MG TAB PO PRN (20:22)
[2018-01-23] MEDS ORDERED: FLUTICASONE NASAL 120 SPRAYS/16 GM MDI EACHNARE SCH (21:00)
[2018-01-24] MEDS: OXYCODONE/APAP 5/325 TAB PO PRN ×3 (03:23→12:59)
[2018-01-24] MEDS: LEVOTHYROXINE 125 MCG TAB PO SCH (05:53)
[2018-01-24 08:08] VITALS: BP 126/93
[2018-01-24] MEDS: KETOTIFEN FUMARATE 0.035% EACHEYE SCH (08:12)
[2018-01-24] MEDS: DILTIAZEM XR 240 MG CAP PO SCH (08:12)
[2018-01-24] MEDS: ENOXAPARIN 40 MG/0.4 ML SYR SC SCH (08:13)
[2018-01-24] MEDS: FEXOFENADINE PO SCH (08:13)
[2018-01-24] MEDS: PSEUDOEPHEDRINE PO SCH (08:13)
[2018-01-24] MEDS: DOCUSATE SODIUM 100 MG CAP PO SCH (11:18)
--- NOTE | 2018-01-24 14:41 | SOAPPROG ---
SOAP Progress Note Assessment/Plan: Assessment: DOING WELL, AFEBRILE, WOUND OK, +FLATUS CHEST CLEAR ABD SOFT Plan:HOME TODAY 01/24/18 14:40 Objective: Vital Signs Temp Pulse Resp BP Pulse Ox 37.1 C 80 14 126/93 H 92 01/24/18 08:00 01/24/18 08:00 01/24/18 08:00 01/24/18 08:00 01/24/18 08:00 Laboratory Results 01/21/18 04:30 01/21/18 04:30 01/23/18 01/24/18 01/25/18 05:59 05:59 05:59 Intake Total 1300 300 Output Total 250 Balance 1300 50 ICD10 Worksheet Patient Problems: Problems Problem Status Onset Chest pain Acute Thyroid nodule Acute
--- NOTE | 2018-02-04 08:22 | GDS ---
[f rep st] DISCHARGE SUMMARY DISCHARGE DIAGNOSIS: Recurrent diverticulitis. PROCEDURES: Low anterior colon resection with splenic flexure mobilization. INTRAOPERATIVE FINDINGS: Patient was found to have diffuse diverticula in the sigmoid colon, but at least 1 area of significant inflammatory change. CONSULTATIONS: None. SPECIAL TESTS: Abdominal x-ray suggested ileus. Please see report for details. HOSPITAL COURSE: The patient is a 57-year-old male with recurrent diverticulitis who underwent colon resection. The procedure was uncomplicated and he tolerated it well. The patient's postoperative course was relatively uneventful. His Morales catheter was removed and he was able to void spontaneously. All of his home medications were restarted. He was started on clear s on postoperative day 1. He did have some abdominal cramping with signs suggestive of a mild ileus. This was confirmed with abdominal x-ray. It did ultimately resolve and his diet was advanced. His pain medicines were transitioned from IV to oral. DISCHARGE INSTRUCTIONS: The patient was discharged in stable condition to home with plans for outpat ient followup. All limitations were discussed. /[id number]/MODL
== END 2018-01-24 15:27 | disposition home or self-care (01) | DRG 331 ==
LOC: F3N 08:12 → F3E 12:21
PROVIDERS: ADMIT Surgery; ATTEND Surgery
PROC: 0DTN0ZZ Resection of Sigmoid Colon, Open Approach (ICD-10-PCS; principal; 2018-01-20 09:45)
DX: K57.30 Diverticulosis of large intestine without perforation or abscess without bleeding (principal); Z87.19 Personal history of other diseases of the digestive system; E88.81 Metabolic syndrome and other insulin resistance; E78.5 Hyperlipidemia, unspecified; I10 Essential (primary) hypertension; N40.0 Benign prostatic hyperplasia without lower urinary tract symptoms; Z85.850 Personal history of malignant neoplasm of thyroid
CPT/HCPCS: 97116-GP; 97161-GP; J0694; J1100; J1170; J1650; J1885; J2250; J2405; J2704; J3010

== ENCOUNTER → 2018-06-24 | Outpatient (CLI) | payer BC ==
[~2018-06-24] MED LIST changes: -BUPIVACAINE 0.25% 30 ML SDV ONE; -HEPARIN 1000 UNIT/1 ML MDV ONE; +IOPAMIDOL (ISOVUE-300) 100 ML BTL ONE; -ceFAZolin 1 GM/5 ML SYR ONE; -cefOXitin SODIUM 2 GM in NS 100 ML IV ONE
== END ==
LOC: FIMAGING 12:43
PROVIDERS: ATTEND Surgery
DX: R10.31 Right lower quadrant pain (principal); K57.30 Diverticulosis of large intestine without perforation or abscess without bleeding; R93.3 Abnormal findings on diagnostic imaging of other parts of digestive tract; N20.0 Calculus of kidney; Z98.890 Other specified postprocedural states
CPT/HCPCS: Q9967

== ENCOUNTER 2018-07-02 05:53 | Observation (INO) | payer BC ==
--- NOTE | 2018-07-01 16:29 | GHP ---
ADMISSION DIAGNOSIS: BPH with urinary obstruction. HISTORY OF PRESENT ILLNESS: This is a 57-year-old gentleman who had urinary obstruction secondary to prostatomegaly and at the present time, he is admitted for a TURP. He has had a history of prostati tis in the past and has been on Rapaflo which he has tolerated for BPH, but his symptoms have progres sed. He has had an AUA score of up to 26 with a quality of life of 4. He has had intermittency, urg ency, weak stream, nocturia, and incomplete emptying. His most recent PSA value was 2.3 as of . He had a prostate volume of 68.4 g, and he had postvoid residuals varying from 122 to 513 mL. At the present time, he is admitted for a TURP. PAST MEDICAL HISTORY: Has been the prostate issues. He has had a concussion, GERD, Courtney's dise ase, thyroid gland issues, tachycardia, spermatocele. PAST SURGICAL HISTORY: Thyroidectomy, testicular surgeries with spermatocelectomy, cholecystectomy, fasciotomy and appendectomy. MEDICATIONS: Dinora, aspirin, Cartia XT (diltiazem), Linzess, lisinopril, Rapaflo, Synthroid, Zyrte c, and vitamins. ALLERGIES: Claritin, codeine, , simvastatin, Tylenol with codeine. FAMILY HISTORY: Positive for diabetes, hypertension, lung cancer, prostate cancer, hypothyroidism. SOCIAL HISTORY: Moderate alcohol consumption, nonsmoker. REVIEW OF SYSTEMS: Negative cardiac, respiratory, GI and endocrine. PHYSICAL EXAMINATION: VITAL SIGNS: Stable. CHEST: Clear. HEART: Regular rate and rhythm. ABDOM EN: Normal. No organomegaly, rebound or guarding. EXTREMITIES: Lower extremities are normal at th e present time. ASSESSMENT AND PLAN: He is admitted for a transurethral resection of the prostate. Indication, comp lications, and options have all been discussed. He appears to be well informed and is admitted for t he above procedure. /[id number]/MODL
[2018-07-02] MEDS ORDERED: ceFAZolin 2 GM/DEXTROSE 100 ML IV ONE (06:02)
[2018-07-02] MEDS ORDERED: LR 1,000 ML IV ONE (06:03)
[2018-07-02] MEDS ORDERED: FAMOTIDINE 10 MG PO PRN (06:57)
[2018-07-02] MEDS ORDERED: IBUPROFEN PO PRN (06:57)
[2018-07-02] MEDS ORDERED: CETIRIZINE PO PRN (06:57)
[2018-07-02] MEDS ORDERED: ERGOCALCIFEROL 50000 UNIT PO SCH (07:00)
--- NOTE | 2018-07-02 07:09 | PDANEPAE ---
ANE History of Present Illness Prostate lesions, here for TURP ANE Past Medical History - Cardiovascular History Hx Hypertension: Yes Hx Arrhythmias: Yes Hx Chest Pain: No Hx Coronary Artery / Peripheral Vascular Disease: No Hx CHF / Valvular Disease: No Hx Palpitations: No Cardiovascular History Comment: SVT 2002, 2004. No further issues since - Pulmonary History Hx COPD: No Hx Asthma/Reactive Airway Disease: No Hx Recent Upper Respiratory Infection: No Hx Oxygen in Use at Home: No Hx Sleep Apnea: No Sleep Apnea Screening Result - Last Documented: Positive Pulmonary History Comment: ryan triggers - Neurologic History Hx Cerebrovascular Accident: No Hx Seizures: No Hx Dementia: No Neurologic History Comment: concussion 2008. mild arthritis L spine - Endocrine History Hx Diabetes: No Endocrine History Comment: Courtney/thyroid 2010. thyroidectomy - Renal History Hx Renal Disorders: Yes Renal History Comment: benign BPH-med. chronic prostatitis since 2005. creatinine at good levels -1.2 - Liver History Hx Hepatic Disorders: Yes Hepatic History Comment: HX fatty liver - Neurological & Psychiatric Hx Hx Neurological and Psychiatric Disorders: No - Cancer History Hx Cancer: Yes Cancer History Comment: thyroid CA - Congenital Disorder History Hx Congenital Disorders: No - GI History Hx Gastrointestinal Disorders: Yes Gastrointestinal History Comment: 12/2017 lap sigmoid colectomy with Jose Luis. GI bleed from codeine 1987. 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 12/19/15 heart cath with Juan. 11/19/13 total thyroidectomy with Jose Luis. 10/14/13 KALLIE with Juan. cyst r testicle. 06/06 GB cholecystectomy. bilateral fasciotomys [id number]. Appy 1991 ANE Review of Systems Review of Systems: - Exercise capacity METS (RN): 5 METS ANE Patient History - Allergies Allergies/Adverse Reactions: codeine Allergy (Verified 05/06/17 15:53) GI BLEED loratadine [From Claritin] Allergy (Verified 05/06/17 15:53) PERIPHERAL NEUROPATHY moxifloxacin Allergy (Verified 05/06/17 15:53) Peripheral Neuropathy/ Tachycardia Rmwrxqf-Wiw-Gfe Reductase Inhibitor Allergy (Verified 06/26/18 14:37) Muscle Pain, Weakness - Home Medications Home Medications: Cetirizine [ZyrTEC 10 mg (*)] 10 - 40 mg PO DAILY PRN 11/15/13 [Last Taken 07/01] Lisinopril [Zestril 20 mg (*)] 20 mg PO DAILY 11/15/13 [Last Taken 07/01/18] Multivitamins [Multivitamin (*)] 1 each PO DAILY 11/16/13 [Last Taken 07/01/18] Silodosin [RAPAFLO] 8 mg PO DAILY 11/10/14 [Last Taken 07/01/18] Ketotifen Fumarate [Zaditor] 1 drop EACHEYE BID 12/19/15 [Last Taken 07/02/18 04 :00] Acetaminophen [Tylenol 325mg (*)] 325 mg PO Q6 PRN 01/16/18 [Last Taken 1 Week Ago ~06/25/18] Ergocalciferol [Vitamin D2 (*)] 50,000 unit PO Q5D 01/16/18 [Last Taken 07/01/18 ] Fluticasone Nasal [Flonase Nasal Taylor] 1 sprays NASAL DAILY 01/16/18 [Last Taken 07/01/18] Ibuprofen [Motrin (*)] 200 - 600 mg PO DAILY PRN 01/16/18 [Last Taken 1 Week Ago ~06/25/18] Levothyroxine [Synthroid 125 mcg (*)] 125 mcg PO DAILY06 01/16/18 [Last Taken ] Linaclotide [Linzess] 145 mcg PO DAILY@17 01/16/18 [Last Taken 07/01/18] Diltiazem HCl [Cartia XT 240mg] 240 mg PO DAILY 01/21/18 [Last Taken 07/01/18] Famotidine [Pepcid AC] 10 mg PO QID PRN 01/21/18 [Last Taken 07/01/18] Fexofenadine HCl [Dinora Allergy] 180 mg PO DAILY 06/26/18 [Last Taken 07/01/18 ] - NPO status NPO Since - Liquids (Date): 07/01/18 NPO Since - Liquids (Time): 22:15 NPO Since - Solids (Date): 07/01/18 NPO Since - Solids (Time): 18:00 - Smoking Hx Smoking Status: Never smoked - Family Anes Hx Family Hx Anesthesia Complications: none ANE Labs/Vital Signs - Vital Signs Blood Pressure: 150/101 Heart Rate: 77 Respiratory Rate: 18 O2 Sat (%): 95 Height: 182.88 cm ANE Physical Exam - Airway Neck exam: FROM Mallampati Score: Class 3 Mouth exam: normal dental/mouth exam - Pulmonary Pulmonary: no respiratory distress - Cardiovascular Cardiovascular: regular rate and rhythym - ASA Status ASA Status: III (Hx of anaphylaxis 9x in his life with food and environmental triggers) ANE Anesthesia Plan Anesthesia Plan: general endotracheal anesthesia Total IV Anesthesia: No
[2018-07-02] MEDS ORDERED: MIDAZOLAM 2 MG/2 ML VIAL IVP ONE (07:10)
[2018-07-02] MEDS ORDERED: CISATRACURIUM BESYLATE 20 MG/10 ML VIAL IV ONE (07:16)
[2018-07-02] MEDS ORDERED: ONDANSETRON 4 MG/2 ML VIAL ONE (07:16)
[2018-07-02] MEDS ORDERED: LIDOCAINE 2% 2 ML INJ ONE (07:16)
[2018-07-02] MEDS ORDERED: fentaNYL 100 MCG/2 ML INJ ONE (07:16)
[2018-07-02] MEDS ORDERED: DEXAMETHASONE 4 MG/ML VIAL ONE (07:16)
[2018-07-02] MEDS ORDERED: PROPOFOL 200 MG/20 ML VIAL ONE (07:16)
[2018-07-02] MEDS ORDERED: ACETAMINOPHEN 325 MG TAB PO PRN ×2 (07:24→08:55)
[2018-07-02] MEDS ORDERED: ALBUTEROL 3 ML DEYVIAL IH PRN (08:51)
[2018-07-02] MEDS ORDERED: HYDROmorphONE/DILAUDID 2 MG/ML INJ IVP PRN (08:51)
[2018-07-02] MEDS ORDERED: oxyCODONE IR 5 MG TAB PO PRN (08:51)
[2018-07-02] MEDS ORDERED: fentaNYL 100 MCG/2 ML INJ IVP PRN (08:51)
[2018-07-02] MEDS ORDERED: MEPERIDINE 25 MG/0.5 ML AMP IVP PRN (08:51)
[2018-07-02] MEDS ORDERED: LR 500 ML IV PRN (08:51)
[2018-07-02] MEDS ORDERED: ACETAMINOPHEN 500 MG TAB PO PRN (08:51)
[2018-07-02] MEDS ORDERED: PROMETHAZINE HCL 25 MG/ML INJ IVP PRN (08:51)
[2018-07-02] MEDS ORDERED: PHENYLEPHRINE HCL 100 MCG/ML SYR IVP PRN (08:51)
[2018-07-02] MEDS ORDERED: NALOXONE HCL 0.4 MG/ML INJ IVP PRN (08:51)
[2018-07-02] MEDS ORDERED: OPIUM/BELLADONNA ALKALO SUPP PR PRN (08:53)
[2018-07-02] MEDS ORDERED: HYDROCODONE/APAP 5/325 TAB PO PRN (08:53)
--- NOTE | 2018-07-02 08:53 | POSTANESTH ---
Post Anesthetic Evaluation Cardiovascular Status: Normal, Stable Respiratory Status: Normal, Stable Level of Consciousness/Mental Status: Can Participate in Eval Pain Control: Adequate, Prn Tx Ordered Nausea/Vomiting Control: Adequate, Prn Tx Ordered Complications Possibly Related to Anesthesia: None Noted (No evidence of any unusual reaction to the events of today. Standard orders and PACU aware of this patient's history of anaphylaxis)
[2018-07-02] MEDS ORDERED: ZOLPIDEM TARTRATE 5 MG TAB PO PRN (08:55)
[2018-07-02] MEDS ORDERED: ONDANSETRON DISINTEGRATING 4 MG TAB PO PRN (08:55)
[2018-07-02] MEDS ORDERED: ONDANSETRON 4 MG/2 ML VIAL IVP PRN (08:55)
[2018-07-02] MEDS ORDERED: OXYCODONE/APAP 5/325 TAB PO PRN (08:55)
--- NOTE | 2018-07-02 08:58 | POSTOPPROG ---
Post Op Note Date of Operation: 07/02/18 (dictated) Surgeon: Yousuf Delgado Anesthesia: LMA Pre-op Diagnosis: bph Procedure: TURP Inf/Abcess present in the surg proc area at time of surgery?: No EBL: Minimal Drains: Other (wagoner) Specimen(s): sent
[2018-07-02] MEDS ORDERED: DILTIAZEM HCL 240 MG PO SCH (09:00)
[2018-07-02] MEDS ORDERED: D5W LR 1,000 ML IV SCH (09:00)
[2018-07-02] MEDS ORDERED: Fluticasone Nasal [Flonase Nasal Spray] 1 SPRAYS NASAL SCH (09:00)
--- NOTE | 2018-07-02 09:50 | GOP ---
DATE OF OPERATION: SURGEON: Yousuf Delgado MD PREOPERATIVE DIAGNOSIS: Benign prostatic hypertrophy, obstruction. POSTOPERATIVE DIAGNOSIS: Benign prostatic hypertrophy, obstruction. PROCEDURE PERFORMED: Transurethral resection of the prostate. FINDINGS: DESCRIPTION OF PROCEDURE: After undergoing general anesthesia, prepped and draped in a normal steril e fashion and appropriate time-out, the urethra was cannulated with the scope and he had a large intr avesical lobe and a TUR begun taking down the intravesical lobe, the right lateral lobe and right pos terior lobe, left lateral lobe and left portion of the posterior distal lobe resected in a similar fa shion. Bladder was Ellik'd free of all chips and clots and bipolar was used to provide hemostasis. A 22 three-way catheter passed through the bladder, 90 cc balloon inflated, traction placed, and irri gated clear. Specimen sent to pathology. Will be admitted for postoperative care. /[id number]/MODL
--- NOTE | 2018-07-02 12:34 | ASMTCMCOM ---
CM Note CM Note Notes: Chart reviewed for discharge planning purposes. 57 year old male s/p TURP. No current needs identified CM to follow. Plan: Likely to dc to home independently when medically cleared for discharge. Date Signed: 07/02/2018 12:33 PM Electronically Signed By:Sasha Fu RN
[2018-07-02] MEDS ORDERED: ERGOCALCIFEROL 50,000 I.UNIT CAP PO SCH (14:00)
[2018-07-02] MEDS ORDERED: FAMOTIDINE 20 MG TAB PO PRN (14:00)
[2018-07-02] MEDS ORDERED: CETIRIZINE 10 MG TAB PO PRN ×2 (14:00)
[2018-07-02] MEDS ORDERED: IBUPROFEN 200 MG TAB PO PRN (14:00)
[2018-07-02] MEDS: DILTIAZEM XR 240 MG CAP PO SCH (15:14)
[2018-07-02] MEDS: Fexofenadine Hcl [Allegra Allergy] 180 MG PO SCH (15:17)
[2018-07-03] MEDS ORDERED: FLUTICASONE NASAL 120 SPRAYS/16 GM MDI EACHNARE SCH (09:00)
[2018-07-03] MEDS ORDERED: LEVOTHYROXINE 125 MCG TAB PO SCH (09:00)
[2018-07-03] MEDS: Fexofenadine Hcl [Allegra Allergy] 180 MG PO SCH (09:10)
[2018-07-03] MEDS: DILTIAZEM XR 240 MG CAP PO SCH (09:10)
--- NOTE | 2018-07-03 11:01 | ASMTLACE ---
CARTERE Length of stay for Answers: 1 day current admission Acuity / Level of Answers: No Care: Did the patient have an inpatient admission? Comorbidities - select Answers: Other Notes: BPH, thyroidectomy,Gerd all that apply Score: 2 Date Signed: 07/03/2018 11:00 AM Electronically Signed By:Desi Lane RN
--- NOTE | 2018-07-03 15:03 | GDS ---
PREOPERATIVE DIAGNOSIS: Benign prostatic hypertrophy with urinary obstruction. POSTOPERATIVE DIAGNOSIS: Benign prostatic hypertrophy with urinary obstruction. After a full discussion of options in our office and a trial of medications, patient underwent testin g and elected to undergo transurethral resection of the prostate. This was performed without complic ations. He is being discharged home in good condition. He is to follow up with our office in 3 week s unless he has a catheter and then he is to follow up on Friday or Friday morning. /[id number]/MODL
[2018-07-03 16:41] VITALS: BP 146/95
[2018-07-06] MEDS ORDERED: ERGOCALCIFEROL 50,000 I.UNIT CAP PO SCH (09:00)
== END 2018-07-03 17:00 | disposition home or self-care (01) ==
LOC: F3N 05:53 → F1N 10:00 → EDSTATUS 12:15
PROVIDERS: ADMIT Specialist; ATTEND Specialist
PROC: 0VB07ZX Excision of Prostate, Via Natural or Artificial Opening, Diagnostic (ICD-10-PCS; principal; 2018-07-02 07:15)
DX: C61 Malignant neoplasm of prostate (principal); K21.9 Gastro-esophageal reflux disease without esophagitis; E06.3 Autoimmune thyroiditis
CPT/HCPCS: 52601; G0378; J0690; J1100; J2250; J2405; J2704; J3010

== ENCOUNTER 2018-07-05 10:53 | Emergency (ER) | payer BC ==
--- NOTE | 2018-07-05 11:45 | EDPHY ---
H & P Stated Complaint: pt would like wagoner checked (?leak?)-had turp then urin retention Time Seen by Provider: 07/05/18 11:45 - Personal History Current Tetanus/Diphtheria Vaccine: No Current Tetanus Diphtheria and Acellular Pertussis (TDAP): No - Medical/Surgical History Hx Asthma: No Hx Chronic Respiratory Disease: No Hx Diabetes: No Hx Cardiac Disease: Yes Hx Renal Disease: No Hx Cirrhosis: No Hx Alcoholism: No Hx HIV/AIDS: No Hx Splenectomy or Spleen Trauma: No Other PMH: TURP 07/02, diverticulitis, kid stones. htn, high cholesterol, high triglycerides. thyroid ca, compartment syndrome related to running (fasciotomy to both shins). cholecystecomy, appy. mast cell disease - Social History Smoking Status: Never smoked Constitutional: Initial Vital Signs Temperature (C) 36.4 C 07/05/18 11:02 Heart Rate 88 07/05/18 11:02 Respiratory Rate 18 07/05/18 11:02 Blood Pressure 144/87 H 07/05/18 11:02 O2 Sat (%) 97 07/05/18 11:02 O2 Delivery Mode Room Air Allergies/Adverse Reactions: codeine Allergy (Verified 05/06/17 15:53) GI BLEED loratadine [From Claritin] Allergy (Verified 05/06/17 15:53) PERIPHERAL NEUROPATHY moxifloxacin Allergy (Verified 05/06/17 15:53) Peripheral Neuropathy/ Tachycardia Wczbwxj-Oef-Nhs Reductase Inhibitor Allergy (Verified 06/26/18 14:37) Muscle Pain, Weakness Home Medications: Medication Instructions Recorded Cetirizine [ZyrTEC 10 mg (*)] 10 - 40 mg PO DAILY PRN 11/15/13 Lisinopril [Zestril 20 mg (*)] 20 mg PO DAILY 11/15/13 Multivitamins [Multivitamin (*)] 1 each PO DAILY 11/16/13 Silodosin [RAPAFLO] 8 mg PO DAILY 11/10/14 Ketotifen Fumarate [Zaditor] 1 drop EACHEYE BID 12/19/15 Tears/Dextran 70/Hypromellose 1 drop EACHEYE PRN PRN #0 opht.btl 12/21/15 [Natural Balance Tears (*)] Acetaminophen [Tylenol 325mg (*)] 325 mg PO Q6 PRN 01/16/18 Ergocalciferol [Vitamin D2 (*)] 50,000 unit PO Q5D 01/16/18 Fluticasone Nasal [Flonase Nasal 1 sprays NASAL DAILY 01/16/18 [place]] Ibuprofen [Motrin (*)] 200 - 600 mg PO DAILY PRN 01/16/18 Levothyroxine [Synthroid 125 mcg 125 mcg PO DAILY06 01/16/18 (*)] Linaclotide [Linzess] 145 mcg PO DAILY@17 01/16/18 Diltiazem HCl [Cartia XT 240mg] 240 mg PO DAILY 01/21/18 Famotidine [Pepcid AC] 10 mg PO QID PRN 01/21/18 Fexofenadine HCl [Dinora Allergy] 180 mg PO DAILY 06/26/18 Medical Decision Making ED Course/Re-evaluation: CHIEF COMPLAINT: Question about urinary catheter HISTORY OF PRESENT ILLNESS: 57-year-old male who had a TURP performed a few days ago. He was having some postoperative urinary retention and a Wagoner catheter was placed. This morning had a bowel movement and he also urinated and there was some urine that leaked around the catheter. He was not sure if that was normal. Also the catheter came out slightly but certainly not all the way and he just pushed back in. He then came here to get checked. He denies any fevers or chills. He denies any pain or symptoms. He is tolerating everything very well. He feels like he can probably urinate on his own at this point but he has an appoint with Dr. Yousuf Delgado tomorrow. REVIEW OF SYSTEMS: A comprehensive 10 system review of systems is otherwise negative aside from elements mentioned in the history of present illness and medical decision making. PHYSICAL EXAM: HR, BP, O2 Sat, RR. Temp noted General Appearance: Alert, well hydrated, appropriate, and non-toxic appearing. Head: Atraumatic without scalp tenderness or obvious injury Eyes: Pupils equal, round, reactive to light and accommodation, EOMI, no trauma , no injection. Ears: Clear bilaterally, no perforation, normal landmarks Nose: Atraumatic, no rhinorrhea, clear. Throat: There is no erythema or exudates, no lesions, normal tonsils, mucus membranes moist. Neck: Supple, 2+ carotid upstroke, nontender, no lymphadenopathy. Respiratory: No retractions, no distress, no wheezes, and no accessory muscle use. Lungs are clear to auscultation bilaterally. Cardiovascular: Regular rate and rhythm, no murmurs, rubs, or gallops. Bilateral carotid, radial, dorsalis pedis, and posterior tibial pulses intact. Good capillary refill all extremities. Gastrointestinal: Abdomen is soft, nontender, non-distended, no masses, no rebound, no guarding, no peritoneal signs. : Catheter is in place and draining appropriately with very minimal amount of streaky red blood. Catheter balloon is inflated properly placed Musculoskeletal: Normal active ROM of all extremities, atraumatic. Neurological: Alert, appropriate, and interactive. The patient has normal DTRs and non-focal cranial nerves, motor, sensory, and cerebellar exam. Skin: No rashes, good turgor, no nodules on palpation. Past medical history: Mass cell activation disorder and benign prostatic hypertrophy Past surgical history: TURP Family history: Noncontributory Social history: Employed, lives in [place], does not abuse tobacco drugs or alcohol DIFFERENTIAL DIAGNOSIS: Includes but is not limited to: Urinary tract infection, catheter dysfunction, catheter removal, catheter placement, catheter adjustment MEDICAL DECISION MAKING: This patient's catheter is in place properly. It is draining urine properly. There is no evidence of infection. The patient has no symptoms. The patient just needs reassurance that his catheter is properly placed and it is okay if he leaks around it slightly as the catheter is probably slightly smaller in diameter then his urethra and TURP procedure. He will follow up with Dr. Yousuf Delgado tomorrow Departure - Departure Disposition: Home, Routine, Self-Care Clinical Impression: Urinary catheter insertion/adjustment/removal Condition: Good Instructions: Wagoner Catheter Placement and Care (ED) Referrals: Candida Loredo MD [Primary Care Provider] - As per Instructions
[2018-07-05 12:11] VITALS: BP 153/102
== END 2018-07-05 12:11 | disposition home or self-care (01) ==
DX: R33.9 Retention of urine, unspecified (principal); Z96.0 Presence of urogenital implants

== ENCOUNTER → 2018-10-14 | Outpatient (CLI) | payer BC | LOC: FIMAGING 09:20 | PROVIDERS: ATTEND Internal Medicine Endocrinology, Diabetes & Metabolism | DX: C73 Malignant neoplasm of thyroid gland (principal) ==

== ENCOUNTER → 2018-10-26 | Outpatient (CLI) | payer BC | LOC: FIMAGING 08:03 | PROVIDERS: ATTEND Internal Medicine Endocrinology, Diabetes & Metabolism | DX: C73 Malignant neoplasm of thyroid gland (principal) | CPT/HCPCS: Q9967 ==